=== PATIENT | female | born 1950 | race Caucasian/White ===

== ENCOUNTER 2018-05-19 18:28 | Inpatient (IN) | payer MEDICARE, BC ==
[2018-05-19] MEDS ORDERED: Ondansetron 4 MG/2 ML SDV IVPUSH ONE (19:14)
[2018-05-19] MEDS ORDERED: Sodium Chloride 0.9% 1,000 ML IV ONE (19:14)
--- NOTE | 2018-05-19 19:22 | EDM.PDOC ---
ED HPI GENERAL MEDICAL PROBLEM - General Chief Complaint: General Stated Complaint: vomitting Time Seen by Provider: 05/19/18 18:45 Source of Information: Reports: Patient History Limitations: Reports: No Limitations - History of Present Illness INITIAL COMMENTS - FREE TEXT/NARRATIVE: According to patient she was at wedding last evening and has about 4 drinks and supper at the wedding. She woke up today morning and started to feel nauseous, and soon was vomiting. pt claims that she has vomited atleast 15 times today, mostly clear liquids. No blood in the vomitus. Feels achy and chills. No fever. Also has to use bath room to have small amounts of bowel movement every time she vomits. No loose stools. No abdominal pain or distension.Pt claims she is sensitive to canola oil and not sure if the food had it last night. Pt has tried TUMs and mallox at home with no relief. Feels tired and exhausted from vomiting. Pt has been wretching in the emergency room.Pt has had Gastric bypass in the past.Pt has been drinking water, she ahs consumed about 3 litres of fluids today, but nausea and vomiting has not stopped. Onset Date: 05/19/18 Onset Time: 06:00 Severity: Moderate Improves with: Reports: None Worsens with: Reports: None Associated Symptoms: Reports: Loss of Appetite, Nausea/Vomiting, Weakness. 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 (see below) Other Treatments CAN FILLING MACHINE OPERATOR: Drank about 3 liters of smart water - Related Data Allergies Allergy/AdvReac Type Severity Reaction Status Date / Time LOYD Inhibitors Allergy Cough Verified 05/19/18 19:29 codeine Allergy Abdominal Verified 05/19/18 19:30 Cramps morphine Allergy Abdominal Verified 05/19/18 19:29 Cramps oxycodone Allergy Abdominal Verified 05/19/18 19:30 Cramps Home Meds: Home Meds DULoxetine HCl [Duloxetine HCl] 60 mg PO DAILY 05/19/18 [History] Losartan/Hydrochlorothiazide [Losartan-HCTZ 100-12.5 MG] 12.5 - 25 mg PO DAILY 05/19/18 [History] Methocarbamol 1,500 mg PO DAILY PRN 05/19/18 [History] Tobramycin 0.3% [Tobramycin 0.3% Ophth Soln] 1 drop PO DAILY 05/19/18 [History] traZODone HCl [Trazodone HCl] 50 mg PO DAILY 05/19/18 [History] Past Medical History HEENT History: Reports: Impaired Vision Cardiovascular History: Reports: Hypertension Respiratory History: Reports: None Gastrointestinal History: Reports: GERD Genitourinary History: Reports: None 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: Musculoskeletal History: Reports: Other (See Below) Other Musculoskeletal History: bilateral shoulder pain Neurological History: Reports: None Psychiatric History: Reports: Depression Endocrine/Metabolic History: Reports: None Hematologic History: Reports: Anemia Immunologic History: Reports: None Oncologic (Cancer) History: Reports: None Dermatologic History: Reports: None - Past Surgical History GI Surgical History: Reports: Bariatric Procedure, Cholecystectomy Female Surgical History: Reports: Section Musculoskeletal Surgical History: Reports: Knee Replacement, Other (See Below) Other Musculoskeletal Surgeries/Procedures:: right foot surgery Social & Family History - Tobacco Use Smoking Status *Q: Never Smoker Second Hand Smoke Exposure: No - Caffeine Use Caffeine Use: Reports: Coffee - Alcohol Use Days Per Week of Alcohol Use: 7 Number of Drinks Per Day: 3 Total Drinks Per Week: 21 Date of Last Drink: 05/18/18 - Recreational Drug Use Recreational Drug Use: No ED ROS GENERAL - Review of Systems Review Of Systems: See Below Constitutional: Reports: Chills, Weakness, Decreased Appetite. Denies: Fever, Night Sweats, Diaphoresis HEENT: Denies: Rhinitis, Throat Pain, Throat Swelling Respiratory: Denies: Cough, Sputum Cardiovascular: Denies: Chest Pain, Lightheadedness GI/Abdominal: Reports: Nausea, Vomiting. Denies: Abdominal Pain, Constipation, Diarrhea : Denies: Dysuria, Flank Pain, Frequency Musculoskeletal: Reports: Muscle Pain. Denies: Joint Pain, Joint Swelling Skin: Denies: Bruising, Pruritis, Rash Neurological: Denies: Confusion, Dizziness, Headache ED EXAM, GENERAL - Physical Exam Exam: See Below Exam Limited By: No Limitations General Appearance: Alert, WD/WN, No Apparent Distress Eye Exam: Bilateral Eye: EOMI, PERRL Ears: Normal External Exam, Normal Canal, Hearing Grossly Normal, Normal TMs Ear Exam: Bilateral Ear: Auricle Normal, Canal Normal, TM normal Nose: Normal Inspection, Normal Mucosa, No Blood Throat/Mouth: Normal Inspection, Normal Teeth, Normal Gums, Normal Voice, No Airway Compromise, Other (oral mucosa dry and lips chapped) Head: Atraumatic, Normocephalic Neck: Normal Inspection, Supple, Non-Tender, Full Range of Motion Respiratory/Chest: No Respiratory Distress, Lungs Clear, Normal Breath Sounds, No Accessory Muscle Use, Chest Non-Tender Cardiovascular: Normal Peripheral Pulses, Regular Rate, Rhythm, No Edema, No Gallop, No JVD, No Murmur, No Rub GI/Abdominal: Normal Bowel Sounds, Soft, Non-Tender, No Organomegaly, No Distention, No Abnormal Bruit, No Mass Back Exam: Normal Inspection, Full Range of Motion, NT Extremities: Normal Inspection, Normal Range of Motion, Non-Tender, Normal Capillary Refill, No Pedal Edema Neurological: Alert, Oriented, CN II-XII Intact, Normal Cognition, Normal Gait, Normal Reflexes, No Motor/Sensory Deficits Course - Vital Signs Text/Narrative:: Pt appears to have developed gastroenteritis from food that she consumed last night. He main symptoms is nausea and wretching. She did receive zofran 4mg IV and also has been started on Normal saline IV bolus for hydration. Pt 's CBC is normal. Her CMP shows sodium of 121 and chloride of 89. Her AST , ALT and ALK phos are elevated, which can be transient hepatitis form the viral GE. But as this was related to food consumption, will get [id number] panel. Plan is to admit patient to hospital on observation for sodium replenishment. Also will keep her on zofran for nausea. will repeat CMP in Am. Last Recorded V/S: Last Vital Signs Temp 97 F 05/19/18 18:58 Pulse 81 05/19/18 19:55 Resp 16 05/19/18 18:58 BP 141/88 H 05/19/18 19:55 Pulse Ox 99 05/19/18 18:58 - Orders/Labs/Meds Orders: Active Orders 24 hr Category Date Time Status HEPATITIS PANEL (4) Stat Lab 05/19/18 19:56 Received Sodium Chloride 0.9% [Normal Saline] 1,000 ml Med 05/19/18 19:14 Active IV .BOLUS Medication Orders Sodium Chloride (Normal Saline) 1,000 mls @ 999 mls/hr IV .BOLUS ONE Stop: 05/19/18 20:14 Last Admin: 05/19/18 19:25 Dose: 999 mls/hr Labs: Laboratory Tests 05/19/18 05/19/18 Range/Units 19:30 19:30 WBC 7.6 D (4.0-11.0) K/uL RBC 4.07 (3.80-5.80) M/uL Hgb 13.0 (11.5-16.5) g/dL Hct 36.1 L (37.0-47.0) % MCV 89 (76-96) fL MCH 31.9 D (27.0-32.0) pg MCHC 36.0 H (31.0-35.0) g/dL RDW 11.9 (11.0-16.0) % Plt Count 218 D (150-500) K/uL MPV 8.0 (6.0-10.0) fL Neut % (Auto) 85.2 H (45.0-70.0) % Lymph % (Auto) 9.5 L (20.0-40.0) % [place] % (Auto) 4.9 (3.0-10.0) % Eos % (Auto) 0.1 L (1.0-5.0) % Baso % (Auto) 0.3 (0.0-0.5) % Neut # (Auto) 6.43 (2.00-7.50) K/uL Lymph # (Auto) 0.72 L (1.50-4.00) K/uL [place] # (Auto) 0.37 (0.20-0.80) K/uL Eos # (Auto) 0.01 L (0.04-0.40) K/uL Baso # (Auto) 0.02 (0.02-0.10) K/uL Sodium 121 L (136-145) mmol/L Potassium 4.0 (3.5-5.1) mmol/L Chloride 89 L* (98-107) mmol/L Carbon Dioxide 26.2 (21.0-32.0) mmol/L Anion Gap 9.8 (5.0-15.0) mmol/L BUN 6 L D (8-26) mg/dL Creatinine 0.55 D (0.55-1.02) mg/dL Est Cr Clr Drug Dosing TNP Estimated GFR (MDRD) > 60 (>60) MLS/MIN BUN/Creatinine Ratio 10.9 (6-25) Glucose 111 H (74-100) mg/dL Calcium 8.0 L (8.5-10.1) mg/dL Total Bilirubin 2.2 H D (0.0-1.0) mg/dL AST 360 H (15-37) U/L ALT 327 H (12-78) U/L Alkaline Phosphatase 168 H (46-116) U/L Total Protein 5.9 L (6.4-8.2) g/dL Albumin 3.2 L (3.4-5.0) g/dL Globulin 2.7 (2.2-4.2) g/dL Albumin/Globulin Ratio 1.2 (0.8-2.0) Meds: Medications Generic Name Dose Route Start Last Admin Trade Name Freq PRN Reason Stop Dose Admin Sodium Chloride 1,000 mls @ 999 mls/hr 05/19/18 19:14 05/19/18 19:25 Normal Saline IV 05/19/18 20:14 999 mls/hr .BOLUS ONE Administration Discontinued Medications Generic Name Dose Route Start Last Admin Trade Name Freq PRN Reason Stop Dose Admin Ondansetron HCl 4 mg 05/19/18 19:14 05/19/18 19:28 Zofran IVPUSH 05/19/18 19:15 4 mg ONETIME ONE Administration Departure - Departure Time of Disposition: 22:00 Disposition: Admitted As Inpatient 68 Condition: Fair Clinical Impression: Hyponatremia, Viral gastroenteritis, Elevated liver function tests - Discharge Information Referrals: PCP,None [Primary Care Provider] - Forms: ED Department Discharge - Problem List Review Problem List Initiated/Reviewed/Updated: Yes - My Orders Last 24 Hours: My Active Orders 05/19/18 19:14 Sodium Chloride 0.9% [Normal Saline] 1,000 ml IV .BOLUS 05/19/18 19:56 HEPATITIS PANEL (4) Stat - Assessment/Plan Last 24 Hours: My Active Orders 05/19/18 19:14 Sodium Chloride 0.9% [Normal Saline] 1,000 ml IV .BOLUS 05/19/18 19:56 HEPATITIS PANEL (4) Stat Assessment:: Viral gastroenteritis with severe hyponatremia with viral hepatitis Plan: Pt appears to have developed gastroenteritis from food that she consumed last night. He main symptoms is nausea and wretching. She did receive zofran 4mg IV and also has been started on Normal saline IV bolus for hydration. Pt 's CBC is normal. Her CMP shows sodium of 121 and chloride of 89. Her AST , ALT and ALK phos are elevated, which can be transient hepatitis form the viral GE. But as this was related to food consumption, will get [id number] panel. Plan is to admit patient to hospital on observation for sodium replenishment. Also will keep her on zofran for nausea. will repeat CMP in Am.
[2018-05-19] MEDS ORDERED: Ondansetron 4 MG/2 ML SDV IVPUSH PRN (20:11)
[2018-05-19] MEDS: Sodium Chloride 0.9% 1,000 ML IV SCH (20:46)
[2018-05-19] MEDS: Pantoprazole 40 MG Vial IVPUSH SCH (21:57)
[2018-05-20] MEDS ORDERED: Methocarbamol 750 MG Tab PO PRN (03:31)
[2018-05-20] MEDS: Sodium Chloride 0.9% 1,000 ML IV SCH (03:53)
[2018-05-20] MEDS ORDERED: Hydrochlorothiazide 12.5 MG Cap PO SCH (08:00)
[2018-05-20] MEDS ORDERED: Tobramycin 0.3% Ophth Drops 5 ML Bottle EYEBOTH SCH (08:00)
[2018-05-20] MEDS ORDERED: Losartan 50 MG Tab PO SCH (08:00)
[2018-05-20] MEDS ORDERED: DULoxetine 60 MG Cap PO SCH (08:00)
[2018-05-20] MEDS: Pantoprazole 40 MG Vial IVPUSH SCH (08:37)
[2018-05-20] MEDS ORDERED: NS + KCl 20mEq/L 1,000 ML IV SCH (08:45)
--- NOTE | 2018-05-20 13:37 | PCM.DCSUM1 ---
Discharge Summary - Hospital Course Free Text/Narrative:: Pt presented to emergency room yesterday with nausea and vomiting following consuming food and drinks at the wedding previous day. HEr sodium was 121 and was dehydrated. Pt was admitted for IV hydration and correction of her electrolytes. Pt also had elevated AST and ALT , which idd appear like viral GE is transient hepatitis. Hepattis panel was set as there was history of food consumption related. Pt was given NS bolus of 1000cc and started on NS at 150cc/hr. Pt also received zofran 4mg IV, an her nausea resolved. On day#1 pt was feeling better, her sodium had improved to 133 and potassium was 3.4. She was tolerating clear liquids. Also her AST and ALT were trending down. IV fluid wa changed to NS with 20 meq of KCL. Repeat BMP at 1 PM showed sodium of 137 and potassium of 3.7 , Pt was feeling better and energetic and has no more nausea and tolerating diet well. Hence patient was planned for discharge. Advised rest for next 24 hrs. Sent home on zofran 4mg TID prn for nausea. Advised to have LFT done in 1 wk to make sure her liver functions are normal and back to baseline. Brief History: Presented to emergency rooom with vomting, fatigue and muscle spasms. had hyponatremia with dehydration. Kindly see H&P for details. Diagnosis: Stroke: No - Discharge Data Discharge Date: 05/20/18 Discharge Disposition: Home, Self-Care 01 Condition: Good - Patient Instructions Diet: Heart Healthy Diet Fluid Restriction: 1500 mL Activity: As Tolerated Driving: May Drive Today Showering/Bathing: May Shower - Discharge Plan Home Medications: Home Meds DULoxetine HCl [Duloxetine HCl] 60 mg PO DAILY 05/19/18 [History] Methocarbamol 1,500 mg PO DAILY PRN 05/19/18 [History] Tobramycin 0.3% [Tobramycin 0.3% Ophth Soln] 1 drop PO DAILY 05/19/18 [History] traZODone HCl [Trazodone HCl] 50 mg PO DAILY 05/19/18 [History] Losartan/Hydrochlorothiazide [Losartan-HCTZ 50-12.5 MG] 1 tab PO DAILY 05/20/18 [History] Patient Handouts: Viral Gastroenteritis, Adult, Hyponatremia, Liver Function Tests Forms: ED Department Discharge Referrals: PCP,None [Ordering Only Provider] - - Discharge Summary/Plan Comment DC Time >30 min.: Yes - General Info Date of Service: 05/20/18 Functional Status: Reports: Pain Controlled, Tolerating Diet, Ambulating, Urinating - Review of Systems General: Denies: Fever, Weakness, Fatigue HEENT: Denies: Headaches, Sinus Congestion, Visual Changes Pulmonary: Denies: Cough, Sputum Cardiovascular: Denies: Chest Pain, Lightheadedness Gastrointestinal: Denies: Abdominal Pain, Diarrhea, Nausea, Vomiting Musculoskeletal: Denies: Joint Pain, Joint Swelling Skin: Denies: Bruising, Pruritis, Rash - Patient Data Vitals - Most Recent: Last Vital Signs Temp 99.2 F 05/20/18 12:00 Pulse 77 05/20/18 12:00 Resp 16 05/20/18 12:00 BP 149/77 H 05/20/18 12:00 Pulse Ox 98 05/20/18 12:00 Weight - Most Recent: 77.281 kg I&O - Last 24 hours: Intake & Output 05/19/18 05/20/18 05/20/18 22:59 06:59 14:59 Intake Total 1530 Output Total 2700 Balance -1170 Lab Results - Last 24 hrs: Laboratory Results - last 24 hr 05/19/18 05/19/18 05/20/18 Range/Units 19:30 19:30 07:15 WBC 7.6 D 6.0 D (4.0-11.0) K/uL RBC 4.07 4.62 (3.80-5.80) M/uL Hgb 13.0 14.7 (11.5-16.5) g/dL Hct 36.1 L 41.7 (37.0-47.0) % MCV 89 90 (76-96) fL MCH 31.9 D 31.8 (27.0-32.0) pg MCHC 36.0 H 35.3 H (31.0-35.0) g/dL RDW 11.9 12.4 (11.0-16.0) % Plt Count 218 D 273 D (150-500) K/uL MPV 8.0 8.1 (6.0-10.0) fL Neut % (Auto) 85.2 H 67.9 (45.0-70.0) % Lymph % (Auto) 9.5 L 22.0 (20.0-40.0) % [place] % (Auto) 4.9 7.9 (3.0-10.0) % Eos % (Auto) 0.1 L 1.7 (1.0-5.0) % Baso % (Auto) 0.3 0.5 (0.0-0.5) % Neut # (Auto) 6.43 4.10 (2.00-7.50) K/uL Lymph # (Auto) 0.72 L 1.33 L (1.50-4.00) K/uL [place] # (Auto) 0.37 0.48 (0.20-0.80) K/uL Eos # (Auto) 0.01 L 0.10 (0.04-0.40) K/uL Baso # (Auto) 0.02 0.03 (0.02-0.10) K/uL Sodium 121 L (136-145) mmol/L Potassium 4.0 (3.5-5.1) mmol/L Chloride 89 L* (98-107) mmol/L Carbon Dioxide 26.2 (21.0-32.0) mmol/L Anion Gap 9.8 (5.0-15.0) mmol/L BUN 6 L D (8-26) mg/dL Creatinine 0.55 D (0.55-1.02) mg/dL Est Cr Clr Drug Dosing TNP Estimated GFR (MDRD) > 60 (>60) MLS/MIN BUN/Creatinine Ratio 10.9 (6-25) Glucose 111 H (74-100) mg/dL Calcium 8.0 L (8.5-10.1) mg/dL Total Bilirubin 2.2 H D (0.0-1.0) mg/dL AST 360 H (15-37) U/L ALT 327 H (12-78) U/L Alkaline Phosphatase 168 H (46-116) U/L Total Protein 5.9 L (6.4-8.2) g/dL Albumin 3.2 L (3.4-5.0) g/dL Globulin 2.7 (2.2-4.2) g/dL Albumin/Globulin Ratio 1.2 (0.8-2.0) 05/20/18 05/20/18 Range/Units 07:15 13:08 WBC (4.0-11.0) K/uL RBC (3.80-5.80) M/uL Hgb (11.5-16.5) g/dL Hct (37.0-47.0) % MCV (76-96) fL MCH (27.0-32.0) pg MCHC (31.0-35.0) g/dL RDW (11.0-16.0) % Plt Count (150-500) K/uL MPV (6.0-10.0) fL Neut % (Auto) (45.0-70.0) % Lymph % (Auto) (20.0-40.0) % [place] % (Auto) (3.0-10.0) % Eos % (Auto) (1.0-5.0) % Baso % (Auto) (0.0-0.5) % Neut # (Auto) (2.00-7.50) K/uL Lymph # (Auto) (1.50-4.00) K/uL [place] # (Auto) (0.20-0.80) K/uL Eos # (Auto) (0.04-0.40) K/uL Baso # (Auto) (0.02-0.10) K/uL Sodium 133 L 135 L (136-145) mmol/L Potassium 3.4 L 3.7 (3.5-5.1) mmol/L Chloride 99 101 (98-107) mmol/L Carbon Dioxide 27.0 28.0 (21.0-32.0) mmol/L Anion Gap 10.4 9.7 (5.0-15.0) mmol/L BUN 5 L 5 L (8-26) mg/dL Creatinine 0.69 D 0.63 (0.55-1.02) mg/dL Est Cr Clr Drug Dosing TNP TNP Estimated GFR (MDRD) > 60 > 60 (>60) MLS/MIN BUN/Creatinine Ratio 7.2 7.9 (6-25) Glucose 101 H 115 H (74-100) mg/dL Calcium 8.2 L 8.2 L (8.5-10.1) mg/dL Total Bilirubin 2.9 H D (0.0-1.0) mg/dL AST 201 H (15-37) U/L ALT 266 H (12-78) U/L Alkaline Phosphatase 166 H (46-116) U/L Total Protein 6.2 L (6.4-8.2) g/dL Albumin 3.3 L (3.4-5.0) g/dL Globulin 2.9 (2.2-4.2) g/dL Albumin/Globulin Ratio 1.1 (0.8-2.0) Med Orders - Current: Current Medications Duloxetine HCl (Cymbalta) 60 mg PO DAILY [facility] Last Admin: 05/20/18 08:36 Dose: 60 mg Hydrochlorothiazide (Hydrochlorothiazide) 12.5 mg PO DAILY [facility] Last Admin: 05/20/18 09:01 Dose: 12.5 mg Potassium Chloride/Sodium Chloride (Normal Saline With 20 Meq Kcl) 1,000 mls @ 150 mls/hr IV ASDIRECTED [facility] Last Admin: 05/20/18 09:02 Dose: 150 mls/hr Losartan Potassium (Cozaar) 50 mg PO DAILY [facility] Last Admin: 05/20/18 09:01 Dose: 50 mg Methocarbamol (Robaxin) 1,500 mg PO DAILY PRN PRN Reason: Pain Ondansetron HCl (Zofran) 4 mg IVPUSH Q8H PRN PRN Reason: Nausea/Vomiting Last Admin: 05/19/18 20:50 Dose: 4 mg Pantoprazole Sodium (Protonix Iv) 40 mg IVPUSH DAILY [facility] Last Admin: 05/20/18 08:37 Dose: 40 mg Tobramycin (Tobramycin 0.3% Ophth Soln) 0 ml EYEBOTH DAILY [facility] Last Admin: 05/20/18 08:37 Dose: Not Given Trazodone HCl (Trazodone) 50 mg PO BEDTIME [facility] Discontinued Medications Sodium Chloride (Normal Saline) 1,000 mls @ 999 mls/hr IV .BOLUS ONE Stop: 05/19/18 20:14 Last Admin: 05/19/18 19:25 Dose: 999 mls/hr Sodium Chloride (Normal Saline) 1,000 mls @ 150 mls/hr IV ASDIRECTED [facility] Last Admin: 05/20/18 03:53 Dose: 150 mls/hr Ondansetron HCl (Zofran) 4 mg IVPUSH ONETIME ONE Stop: 05/19/18 19:15 Last Admin: 05/19/18 19:28 Dose: 4 mg - Exam General: Reports: Alert, Oriented HEENT: Reports: Pupils Equal, Pupils Reactive, EOMI, Mucous Membr. Moist/[place] Neck: Reports: Supple Lungs: Reports: Clear to Auscultation, Normal Respiratory Effort Cardiovascular: Reports: Regular Rate, Regular Rhythm GI/Abdominal Exam: Normal Bowel Sounds, Soft, Non-Tender, No Organomegaly, No Distention, No Abnormal Bruit, No Mass, Pelvis Stable Back Exam: Reports: Normal Inspection, Full Range of Motion Extremities: Normal Inspection, Normal Range of Motion, Non-Tender, No Pedal Edema, Normal Capillary Refill Skin: Reports: Warm, Dry, Intact
[2018-05-20] MEDS ORDERED: traZODone 100 MG Tab PO SCH (20:00)
[2018-05-22 04:18] LABS: HBSAG SCREEN Negative (Negative); HEP A AB, IGM Negative (Negative); HEP B CORE AB, IGM Negative (Negative); HEP C VIRUS AB <0.1 s/co ratio (0.0-0.9)
== END 2018-05-20 13:55 | disposition home or self-care (01) | DRG 392 ==
LOC: LB.ED 18:28 → LB.MS 20:08 → UNDOADMIN 20:30
PROVIDERS: ADMIT Family Medicine; ATTEND Family Medicine
DX: A08.39 Other viral enteritis (principal); E87.1 Hypo-osmolality and hyponatremia; E86.0 Dehydration; K75.89 Other specified inflammatory liver diseases; I10 Essential (primary) hypertension; R11.2 Nausea with vomiting, unspecified; M25.511 Pain in right shoulder; M25.512 Pain in left shoulder; R79.89 Other specified abnormal findings of blood chemistry; Z98.84 Bariatric surgery status; F32.9 Major depressive disorder, single episode, unspecified; H54.7 Unspecified visual loss; Z96.659 Presence of unspecified artificial knee joint; Z88.5 Allergy status to narcotic agent; Z91.018 Allergy to other foods; Z88.8 Allergy status to other drugs, medicaments and biological substances
CPT/HCPCS: 36415; 80048; 80053; 80074; 85025; 99284; A9270-GY; C9113; J2405; J3480; J7030

== ENCOUNTER 2018-06-01 09:38 | Emergency (ER) | payer MEDICARE, BC ==
[2018-06-01] MEDS ORDERED: Acetaminophen/HYDROcodone 325-5 MG Tab ONE (10:30)
[2018-06-01] MEDS ORDERED: predniSONE 10 MG Tab ONE (10:30)
--- NOTE | 2018-06-01 11:42 | ER ---
DATE OF SERVICE: 06/01/2018 HISTORY OF PRESENT ILLNESS: The patient is a 67-year-old female who comes in today with a chief complaint of wrist and thumb pain. The patient also notes some pruritus. She had surgery on her toe and foot on , which was 2 days ago. She does have a little bit of a low-grade temperature. She notes some dried blood on her dressing, but has not taken it off. She was given a prescription for 60 Dilaudid after the surgery. She notes she has taken them, but they made her intensely pruritic. The surgeon called her in some Vistaril, but despite this Vistaril, whenever she takes the Dilaudid, she finds herself itching horribly. She has taken hydrocodone without problem in the past and she brings the Dilaudid in to destroy it. The redness in her wrist and base of her thumb started the other day, it is bilateral. It is warm and hot to the touch. PHYSICAL EXAMINATION: GENERAL: She is alert, oriented, in no apparent distress other than walking which appears uncomfortable. She is in a surgical shoe, and has a large bulky dressing on her foot. VITAL SIGNS: Blood pressure was 132/91, pulse is 116, O2 saturation is 99%, respirations 20, temperature is a 100.8. HEENT: Unremarkable. LUNGS: Clear. HEART: Regular sinus rhythm. EXTREMITIES: The base of both thumbs into the wrist is hot, red, swollen, and tender to palpation. ASSESSMENT: Arthritis PLAN: We will go ahead and put her on prednisone 40 mg p.o. daily x5 days. If she is not getting better in the next day and if it is not significantly improved by tomorrow, would have her call. I did give her a take-away pack of prednisone with 15 tablets and a prescription to fill out the 5 days. I gave her a take-home pack of hydrocodone 5/325 one to two p.o. q.4-6, #10 tablets, and a prescription for 30 more tablets. The patient did turn in her Dilaudid prescription which appears largely full and this was destroyed. SOLEDAD/GEOFF /[id number] LETICIA
== END 2018-06-01 10:26 | disposition home or self-care (01) ==
LOC: LB.ED 09:38
DX: M19.032 Primary osteoarthritis, left wrist (principal); M19.031 Primary osteoarthritis, right wrist; M19.042 Primary osteoarthritis, left hand; M19.041 Primary osteoarthritis, right hand
CPT/HCPCS: 99283; A9270

== ENCOUNTER → 2019-09-25 | Outpatient (CLI) | payer MEDICARE, BC | LOC: LB.LAB 12:46 | PROVIDERS: ATTEND Internal Medicine | DX: C50.411 Malignant neoplasm of upper-outer quadrant of right female breast (principal) | CPT/HCPCS: 36415; 80053; 85025 ==

== ENCOUNTER 2021-08-20 15:25 | Emergency (ER) | payer MEDICARE, BC ==
[2021-08-20] MEDS ORDERED: Ondansetron 4 MG Tab.DIS ONE (15:35)
[2021-08-20] MEDS ORDERED: Amoxicillin/Clavulanate K 875-125 MG Tab ONE (15:35)
--- NOTE | 2021-08-20 15:48 | EDM.PDOC ---
ED HPI GENERAL MEDICAL PROBLEM - General Chief Complaint: General Stated Complaint: infected toe Time Seen by Provider: 08/20/21 15:30 - History of Present Illness INITIAL COMMENTS - FREE TEXT/NARRATIVE: Pt is here with concerns about her 2nd toe, Rt foot. She thinks it may be getting infected. She had the nail removed 3 weeks ago, and it is getting more painful. No drainage recently. No recent injury to the involved area. - Related Data Allergies Allergy/AdvReac Type Severity Reaction Status Date / Time LOYD Inhibitors Allergy Cough Verified 05/19/18 19:29 codeine Allergy Abdominal Verified 05/19/18 19:30 Cramps morphine Allergy Abdominal Verified 05/19/18 19:29 Cramps oxycodone Allergy Abdominal Verified 05/19/18 19:30 Cramps Home Meds: Home Meds DULoxetine HCl [Duloxetine HCl] 60 mg PO DAILY 05/19/18 [History] methocarbamoL [Methocarbamol] 1,500 mg PO DAILY PRN 05/19/18 [History] traZODone HCl [Trazodone HCl] 50 mg PO DAILY 05/19/18 [History] Losartan/Hydrochlorothiazide [Losartan-HCTZ 50-12.5 MG] 1 tab PO DAILY 05/20/18 [History] Past Medical History HEENT History: Reports: Impaired Vision Cardiovascular History: Reports: Hypertension Respiratory History: Reports: None Gastrointestinal History: Reports: GERD Genitourinary History: Reports: None JTAC History: Reports: Musculoskeletal History: Reports: Other (See Below) Other Musculoskeletal History: bilateral shoulder pain Neurological History: Reports: None Psychiatric History: Reports: Depression Endocrine/Metabolic History: Reports: None Hematologic History: Reports: Anemia Immunologic History: Reports: None Oncologic (Cancer) History: Reports: None Dermatologic History: Reports: None - Past Surgical History GI Surgical History: Reports: Bariatric Procedure, Cholecystectomy Female Surgical History: Reports: Section Musculoskeletal Surgical History: Reports: Knee Replacement, Other (See Below) Other Musculoskeletal Surgeries/Procedures:: right foot surgery Social & Family History - Caffeine Use Caffeine Use: Reports: Coffee ED ROS GENERAL - Review of Systems Review Of Systems: Comprehensive ROS is negative, except as noted in HPI. Musculoskeletal: Reports: Other (painful toe.) ED EXAM, GENERAL - Physical Exam Exam: See Below Extremities: Other (Examining her Rt 2nd toe reveals mild swelling and tenderness to the distal toe with light touch. Skin is pink with mild redness proximal to the nail bed.) Course - Re-Assessments/Exams Free Text/Narrative Re-Assessment/Exam: 08/20/21 15:45 Pt is concerned about hardware in this foot from previous issues. I think it would be fournier to start Abx, and she agree's. Augmentin will be started. Probiotic should also be used. She wants something for nausea when taking Abx, Zofran was given to be used prn. Monitor closely - follow up prn. Departure - Departure Time of Disposition: 15:40 Disposition: Home, Self-Care 01 Condition: Good Clinical Impression: Infection of toe - Discharge Information *PRESCRIPTION DRUG MONITORING PROGRAM REVIEWED*: No *COPY OF PRESCRIPTION DRUG MONITORING REPORT IN PATIENT JUSTIN: No Referrals: PCP,Unknown [Primary Care Provider] - Additional Instructions: Take Augmentin as directed. Take with food. Use Probiotic until she is done with Abx. Use Zofran as needed for nausea. Monitor condition closely. Follow up with PCP as needed.
== END 2021-08-20 15:35 | disposition home or self-care (01) ==
LOC: LB.ED 15:25
DX: L08.9 Local infection of the skin and subcutaneous tissue, unspecified (principal); I10 Essential (primary) hypertension; K21.9 Gastro-esophageal reflux disease without esophagitis; Z79.899 Other long term (current) drug therapy; Z88.5 Allergy status to narcotic agent; Z88.8 Allergy status to other drugs, medicaments and biological substances
CPT/HCPCS: 99282; 99283; A9270-GY

== ENCOUNTER 2022-08-31 09:01 | Emergency (ER) | payer MEDICARE, BC ==
[2022-08-31] MEDS ORDERED: Ketorolac 60 MG/2 ML SDV IM ONE (09:26)
[2022-08-31] MEDS ORDERED: Ketorolac 60 MG/2 ML SDV ONE (09:38)
== END 2022-08-31 10:00 | disposition home or self-care (01) ==
LOC: LB.ED 09:01
DX: S52.514A Nondisplaced fracture of right radial styloid process, initial encounter for closed fracture (principal); I10 Essential (primary) hypertension; M19.90 Unspecified osteoarthritis, unspecified site; Z88.5 Allergy status to narcotic agent; Z88.8 Allergy status to other drugs, medicaments and biological substances; Z79.899 Other long term (current) drug therapy; W00.0XXA Fall on same level due to ice and snow, initial encounter; Y93.01 Activity, walking, marching and hiking
CPT/HCPCS: 73110-RT; 96372; 99283; J1885